=== PATIENT | female | born 1965 | race Caucasian/White ===

== ENCOUNTER 2017-05-23 15:52 | Inpatient (IN) | payer BC ==
[2017-05-23 19:38] VITALS: BMI 20.3
--- NOTE | 2017-05-23 21:06 | HP ---
CIWA Score - CIWA Score Nausea/Vomitin Muscle Tremors: 4-Moderate,w/Arms Extend Anxiety: 2 Agitation: 0-Normal Activity Paroxysmal Sweats: 3 Orientation: 0-Oriented Tacttile Disturbances: 0-None Auditory Disturbances: 0-None Visual Disturbances: 0-None Headache: 2-Mild CIWA-Ar Total Score: 14 Admission ROS S - HPI Chief Complaint: alcohol withdrawal symptoms " I am nauseas and shaky" Allergies/Adverse Reactions: Allergies Allergy/AdvReac Type Severity Reaction Status Date / Time No Known Allergies Allergy Verified 05/23/17 19:49 History of Present Illness: 51 yo female was referred by [facility] for alcohol dependence and nicotine dependence is here seeking detox. Currently 1 pack per day. PMHX: HTN, depression, insomnia. Reports prior detox, last detox December 2016, does not remember the name of the facility. Reports psychiatric admission to [facility] in March 2017 for suicidal ideation related to alcohol induced depression. Reports was in the hospital last night at [facility] reason for suicidal watch had verbalized to her daughter that she was having suicidal ideation. Plans after detox completion attend rehab at [facility]. Denies hx of seizures or alcohol related hallucinations. Reports hx of blackouts related to alcohol use, last episode yesterday. - Ebola screening Have you traveled outside of the country in the last 21 days: No Have you had contact with anyone from an Ebola affected area: No Have you been sick,other than usual withdrawal symptoms: No Do you have a fever: No - Review of Systems Constitutional: Chills, Loss of Appetite, Changes in sleep, Unintentional Wgt. Loss (10 lbs in the past 3 months) EENT: reports: Other (runny nose) Respiratory: reports: No Symptoms reported, Cough (chronic cough, x years) GI: reports: Nausea, Poor Appetite, Poor Fluid Intake : reports: No Symptoms Reported Musculoskeletal: reports: Joint Pain Integumentary: reports: No Symptoms Reported Neuro: reports: Headache Endocrine: reports: No Symptoms Reported Hematology: reports: Other (high iron) Psychiatric: reports: Orientated x3, Anxious Other Systems: Reviewed and Negative Patient History - Patient Medical History Hx Anemia: No Hx Asthma: No Hx Chronic Obstructive Pulmonary Disease (COPD): No Hx Cancer: Yes (skin cancer on face, with removal 2016) Hx Cardiac Disorders: No Hx Congestive Heart Failure: No Hx Hypertension: Yes Hx Hypercholesterolemia: No Hx Pacemaker: No HX Cerebrovascular Accident: No Hx Seizures: No Hx Dementia: No Hx Diabetes: No Hx Gastrointestinal Disorders: No Hx Liver Disease: No Hx Genitourinary Disorders: No Hx Sexually Transmitted Disorders: No Hx Renal Disease (ESRD): No Hx Thyroid Disease: No Hx Human Immunodeficiency Virus (HIV): No (does not know, declines testing ) Hx Hepatitis C: No Hx Depression: Yes Hx Suicide Attempt: No (hx of suiciudal ideation ) Hx Schizophrenia: No - Patient Surgical History Past Surgical History: No Hx Neurologic Surgery: No Hx Cataract Extraction: No Hx Cardiac Surgery: No Hx Lung Surgery: No Hx Breast Surgery: No Hx Breast Biopsy: No Hx Abdominal Surgery: Yes (multiple intestinal obstruction 2014) Hx Appendectomy: No Hx Cholecystectomy: No Hx Genitourinary Surgery: No Hx Section: Yes (1x ) Hx Orthopedic Surgery: No Other Surgical History: etopic pregency with fellopian tube removal 1990 Anesthesia Reaction: No - PPD History Previous Implant?: Yes Documented Results: Negative w/o proof PPD to be Administered?: Yes - Reproductive History Patient is a Female of Child Bearing Age (11 -55 yrs old): Yes Patient : No (Post Manopausal ) - Smoking Cessation Smoking history: Current every day smoker Have you smoked in the past 12 months: Yes Aproximately how many cigarettes per day: 20 Hx Chewing Tobacco Use: No Initiated information on smoking cessation: Yes 'Breaking Loose' booklet given: 05/23/17 - Substance & Tx. History Hx Alcohol Use: Yes Substance Use Type: Alcohol Hx Substance Use Treatment: Yes (December 2016, does not recall the name of the facility ) - Substances Abused Alcohol Route: Oral Frequency: Daily Amount used: LIQUOR- 2 PINTS, BEER- 1 SIX PACK Age of first use: 11 Date of Last Use: 05/22/17 Family Disease History - Family Disease History Family Disease History: Other: Father (decase, lung cancer, mesothelioma), Mother (alive, and well ) Admission Physical Exam S - Vital Signs Vital Signs: Vital Signs - 24 hr 05/23/17 19:35 Temperature 97.0 F L Pulse Rate 86 Respiratory 20 Rate Blood Pressure 159/103 - Physical General Appearance: Yes: Appropriately Dressed, Mild Distress, Thin, Tremorous, Sweating, Anxious HEENTM: Yes: EOMI, Hearing grossly Normal, Normal ENT Inspection, Normocephalic , Normal Voice, JESSICA, Pharynx Normal, Tm's normal Respiratory: Yes: Chest Non-Tender, Lungs Clear, Normal Breath Sounds, No Respiratory Distress, No Accessory Muscle Use Neck: Yes: Within Normal Limits Breast: Yes: Breast Exam Deferred Cardiology: Yes: Regular Rhythm, Regular Rate, Tachycardia Abdominal: Yes: Normal Bowel Sounds, Non Tender, Flat, Soft Genitourinary: Yes: Within Normal Limits Back: Yes: Normal Inspection Musculoskeletal: Yes: full range of Motion, Gait Steady, Pelvis Stable Extremities: Yes: Normal Capillary Refill, Normal Inspection, Normal Range of Motion, Non-Tender Neurological: Yes: Within Normal Limits, 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, Fully Oriented, Alert, Motor Strength 5/5, Other (tremor bilateral upper extremities) Integumentary: Yes: Normal Color, Warm, Moist Lymphatic: Yes: Within Normal Limits - Diagnostic (1) Alcohol dependence with withdrawal Current Visit: Yes Status: Acute (2) Tremor, unspecified Current Visit: Yes Status: Acute (3) Anxious mood Current Visit: Yes Status: Acute (4) Hypertension Current Visit: Yes Status: Acute Qualifiers: Hypertension type: essential hypertension Qualified Code(s): I10 - Essential (primary) hypertension (5) Elevated blood pressure reading Current Visit: Yes Status: Acute (6) Nausea Current Visit: Yes Status: Acute (7) Weight loss Current Visit: Yes Status: Acute (8) Difficulty sleeping Current Visit: Yes Status: Acute Cleared for Admission S - Detox or Rehab [facility] Level of Care: Medically Managed Detox Regimen/Protocol: Librium S Breath Alcohol Content Breath Alcohol Content: 0 Urine Pregancy Test - Result Urine Test Results: Negative- NO Line Present Urine Drug Screen - Results Drug Screen Negative: Yes
[2017-05-23] MEDS ORDERED: guaiFENesin/D-METHORPHAN HB 10 ML UNIT-DOSE CUPS PO PRN (21:16)
[2017-05-23] MEDS ORDERED: P-EPHED 60MG/TRIPROLIDI 2.5MG TABLET PO PRN (21:16)
[2017-05-23] MEDS ORDERED: chlordiazePOXIDE HCL 25 MG CAPSULE PO PRN (21:16)
[2017-05-23] MEDS ORDERED: LOPERAMIDE HCL 2 MG CAPSULE PO PRN (21:16)
[2017-05-23] MEDS ORDERED: chlordiazePOXIDE HCL 25 MG CAPSULE PO ONE (21:16)
[2017-05-23] MEDS ORDERED: NICOTINE POLACRILEX 2 MG GUM BC PRN (21:16)
[2017-05-23] MEDS ORDERED: MAGNESIUM HYDROX 2400MG/30ML ORAL SUSPENSION 30 ML CUP PO PRN (21:16)
[2017-05-23] MEDS ORDERED: MENTHOL/PHENOL 1 EACH UD MM PRN (21:16)
[2017-05-23] MEDS ORDERED: hydrOXYzine PAMOATE 50 MG CAPSULE (FP) PO PRN (21:16)
[2017-05-23] MEDS ORDERED: MAG HYDROX/AL HYDROX/SIMETH 30 ML UNIT-DOSE CUP PO PRN (21:16)
[2017-05-23] MEDS ORDERED: ACETAMINOPHEN 325 MG TABLET (FP) PO PRN (21:16)
[2017-05-23] MEDS ORDERED: MAGNESIUM CITRATE 300 ML BOTTLE PO PRN (21:16)
[2017-05-23] MEDS ORDERED: IBUPROFEN 400 MG TABLET (FP) PO PRN (21:16)
[2017-05-23] MEDS ORDERED: amLODIPine BESYLATE 10 MG TABLET (FP) PO SCH (21:30)
[2017-05-23] MEDS: THIAMINE HCL 100 MG TABLET (FP) PO SCH (22:54)
[2017-05-23] MEDS: chlordiazePOXIDE HCL 25 MG CAPSULE PO SCH (22:55)
[2017-05-23] MEDS: cloNIDine HCL 0.1 MG TABLET PO PRN (22:55)
[2017-05-23] MEDS: MELATONIN 5 MG TABLETS PO SCH (22:55)
[2017-05-24 01:38] LABS: URINE APPEARANCE SLCLOUDY; URINE BILIRUBIN NEGATIVE (NEGATIVE); URINE BLOOD NEGATIVE (NEGATIVE); URINE COLOR AMBER; URINE GLUCOSE (UA) NEGATIVE (NEGATIVE); URINE KETONE 1+ (NEGATIVE); URINE LEUK ESTERASE NEGATIVE (NEGATIVE); URINE NITRITE NEGATIVE (NEGATIVE); URINE UROBILINOGEN 4.0 E.U/dl mg/dL (0.2-1.0)
[2017-05-24 02:00] LABS: URINE PROTEIN 2+ (NEGATIVE)
[2017-05-24 02:02] LABS: EPI CELLS RARE /HPF (FEW); URINE MUCUS FEW
[2017-05-24] MEDS: chlordiazePOXIDE HCL 25 MG CAPSULE PO SCH ×4 (05:12→22:43)
--- NOTE | 2017-05-24 09:31 | CONSULT ---
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 Substance Abuse History: Smoking history: Current every day smoker. Have you smoked in the past 12 months: Yes. Aproximately how many cigarettes per day: 20. Hx Chewing Tobacco Use: No. Initiated information on smoking cessation: Yes. 'Breaking Loose' booklet given: 05/23/17. - Substance & Tx. History. Hx Alcohol Use: Yes. Substance Use Type: Alcohol. Hx Substance Use Treatment: Yes (December 2016, does not recall the name of the facility ). - Substances Abused. Alcohol. Route: Oral. Frequency: Daily. Amount used: LIQUOR- 2 PINTS, BEER- 1 SIX PACK. Age of first use: 11. Date of Last Use: 05/22/17 Medical History: PMHX: HTN, Weight loss history Psychiatric History: Patient reports history of depression and anxiety, recent psychiatric admission to [facility] on March 2017 due to suicidal ideation related to alcohol induced depression. Patient reports suicidal ideation history, no attempts, no plans. Patient motivated to be transfered for rehabilitation therapy after detoxification protocol. Reports no medications taking prior to admission, as per chart taking Zoloft 25mg poqd Physical/Sexual Abuse/Trauma History: Denies Additional Comment: Zoloft 25mg poqd Mental Status Exam - Mental Status Exam Alert and Oriented to: Person Cognitive Function: Fair Patient Appearance: Unkempt Mood: Anxious Affect: Flat Patient Behavior: Cooperative Speech Pattern: Delayed Voice Loudness: Mildly Soft/Quiet Thought Process: Circumstantial Thought Disorder: Being Controlled Hallucinations: Denies Suicidal Ideation: Denies Homicidal Ideation: Denies Insight/Judgement: Fair Sleep: Difficulty falling asleep Appetite: Weight loss Muscle strength/Tone: Mild Hypotonicity Gait/Station: Normal Additional Comments: Zoloft 25mg poqd Psychiatric Findings - Problem List (Brooks 1, 2,3) (1) Nicotine dependence Current Visit: Yes Status: Acute (2) Drug-induced mood disorder Current Visit: Yes Status: Acute (3) MDD (major depressive disorder) Current Visit: Yes Status: Suspected (4) Alcohol dependence with withdrawal Current Visit: Yes Status: Acute - Initial Treatment Plan Initial Treatment Plan: Zoloft 25mg poqd. Remeron 15mg po qhs
--- NOTE | 2017-05-24 09:40 | PN ---
[facility] CIWA - CIWA Score Nausea/Vomitin-Mild Nausea/No Vomiting Muscle Tremors: 4-Moderate,w/Arms Extend Anxiety: 3 Agitation: 3 Paroxysmal Sweats: 1-Minimal Palms Moist Orientation: 0-Oriented Tacttile Disturbances: 1-Very Mild Itch/Numbness Auditory Disturbances: 0-None Visual Disturbances: 0-None Headache: 0-None Present CIWA-Ar Total Score: 13 [facility] Progress Note (SOAP) Subjective: sweat tremor anxiety restlessness itch gi distress Objective: 05/24/17 09:39 Vital Signs Temperature 98.4 F 05/24/17 06:00 Pulse Rate 65 05/24/17 06:00 Respiratory Rate 16 05/24/17 06:00 Blood Pressure 121/78 05/24/17 06:00 O2 Sat by Pulse Oximetry (%) Laboratory Last Values Urine Color Shira 05/23/17 22:45 Urine Appearance Slcloudy 05/23/17 22:45 Urine pH 6.0 (5.0-8.0) 05/23/17 22:45 Ur Specific [place] 1.023 (1.001-1.035) 05/23/17 22:45 Urine Protein 2+ (NEGATIVE) H 05/23/17 22:45 Urine Glucose (UA) Negative (NEGATIVE) 05/23/17 22:45 Urine Ketones 1+ (NEGATIVE) H 05/23/17 22:45 Urine Blood Negative (NEGATIVE) 05/23/17 22:45 Urine Nitrite Negative (NEGATIVE) 05/23/17 22:45 Urine Bilirubin Negative (NEGATIVE) 05/23/17 22:45 Urine Urobilinogen 4.0 e.u/dl mg/dL (0.2-1.0) H 05/23/17 22:45 Ur Leukocyte Esterase Negative (NEGATIVE) 05/23/17 22:45 Urine WBC (Auto) 4 /hpf (3-5) 05/23/17 22:45 Urine RBC (Auto) 10 /hpf (0-3) 05/23/17 22:45 Ur Epithelial Cells Rare /HPF (FEW) 05/23/17 22:45 Urine Mucus Few 05/23/17 22:45 lab noted Assessment: 05/24/17 09:39 withdrawal sx Plan: continue detox
[2017-05-24 10:14] LABS: HEMATOCRIT 42.1 % (32.4-45.2); HEMOGLOBIN 14.4 GM/dL (10.7-15.3); MCH 34.9 pg (25.7-33.7); MCHC 34.3 g/dl (32.0-36.0); MEAN CELL VOLUME 101.8 fl (80-96); MEAN PLT VOLUME 8.9 fl (7.5-11.1); PLATELET COUNT 72 K/MM3 (134-434); RBC 4.14 M/mm3 (3.60-5.2); RDW 15.3 % (11.6-15.6); WHITE BLOOD COUNT 4.2 K/mm3 (4.0-10.0)
[2017-05-24] MEDS: PRENATAL VITAMINS W/ FOLIC ACID TABLET (FP) PO SCH (10:28)
[2017-05-24] MEDS: amLODIPine BESYLATE 10 MG TABLET (FP) PO SCH (10:28)
[2017-05-24] MEDS: SERTRALINE HCL 25 MG TABLET (FP) PO SCH (10:28)
[2017-05-24] MEDS: NICOTINE 21 MG/24 HOURS TOPICAL PATCH TD SCH (10:31)
[2017-05-24 10:42] LABS: CHLORIDE 99 mmol/L (98-107); POTASSIUM 3.5 mmol/L (3.5-5.1); SODIUM 140 mmol/L (136-145)
[2017-05-24 10:53] LABS: ALBUMIN 3.8 g/dl (3.4-5.0); ALK PHOS 56 U/L (45-117); ANION GAP 11 (8-16); BILIRUBIN,TOTAL 1.3 mg/dL (0.2-1.0); BLOOD UREA NITROGEN 8 mg/dL (7-18); CALCIUM 9.6 mg/dL (8.5-10.1); CO2 30 mmol/L (21-32); CREATININE 0.5 mg/dL (0.55-1.02); GLUCOSE,RANDOM 105 mg/dL (74-106); SGOT/AST 83 U/L (15-37); SGPT/ALT 75 U/L (12-78); TOT PROT 6.5 g/dl (6.4-8.2)
--- NOTE | 2017-05-24 11:52 | EKG ---
Test Reason : Blood Pressure : / mmHG Vent. Rate : 067 BPM Atrial Rate : 067 BPM P-R Int : 130 ms QRS Dur : 080 ms QT Int : 426 ms P-R-T Axes : 066 059 022 degrees QTc Int : 450 ms NORMAL SINUS RHYTHM NONSPECIFIC T WAVE ABNORMALITY ABNORMAL ECG NO PREVIOUS ECGS AVAILABLE Confirmed by CORIE ADAMSON, FAUSTINO ([id number]) on 05/24/2017 11:51:50 AM Referred By: Confirmed By:FAUSTINO FONTENOT MD
[2017-05-24] MEDS: MELATONIN 5 MG TABLETS PO SCH (22:43)
[2017-05-24] MEDS: THIAMINE HCL 100 MG TABLET (FP) PO SCH (22:43)
[2017-05-24] MEDS: MIRTAZAPINE 15 MG TABLET (FP) PO SCH (22:43)
[2017-05-24] MEDS: cloNIDine HCL 0.1 MG TABLET PO PRN (22:43)
[2017-05-25] MEDS: chlordiazePOXIDE HCL 25 MG CAPSULE PO SCH ×3 (05:47→17:37)
--- NOTE | 2017-05-25 11:03 | PN ---
S CIWA - CIWA Score Nausea/Vomitin-Mild Nausea/No Vomiting Muscle Tremors: 4-Moderate,w/Arms Extend Anxiety: 3 Agitation: 3 Paroxysmal Sweats: 1-Minimal Palms Moist Orientation: 0-Oriented Tacttile Disturbances: 0-None Auditory Disturbances: 0-None Visual Disturbances: 0-None Headache: 0-None Present CIWA-Ar Total Score: 12 [facility] Progress Note (SOAP) Subjective: sweat tremor anxiety restlessness trouble sleep at night mild gi distress Objective: 05/25/17 11:05 Vital Signs Temperature 95.5 F L 05/25/17 10:00 Pulse Rate 96 H 05/25/17 10:00 Respiratory Rate 18 05/25/17 10:00 Blood Pressure 92/71 05/25/17 10:00 O2 Sat by Pulse Oximetry (%) Laboratory Last Values WBC 4.2 K/mm3 (4.0-10.0) 05/24/17 07:00 RBC 4.14 M/mm3 (3.60-5.2) 05/24/17 07:00 Hgb 14.4 GM/dL (10.7-15.3) 05/24/17 07:00 Hct 42.1 % (32.4-45.2) 05/24/17 07:00 MCV 101.8 fl (80-96) H 05/24/17 07:00 MCH 34.9 pg (25.7-33.7) H 05/24/17 07:00 MCHC 34.3 g/dl (32.0-36.0) 05/24/17 07:00 RDW 15.3 % (11.6-15.6) 05/24/17 07:00 Plt Count 72 K/MM3 (134-434) L 05/24/17 07:00 MPV 8.9 fl (7.5-11.1) 05/24/17 07:00 Sodium 140 mmol/L (136-145) 05/24/17 07:00 Potassium 3.5 mmol/L (3.5-5.1) 05/24/17 07:00 Chloride 99 mmol/L (98-107) 05/24/17 07:00 Carbon Dioxide 30 mmol/L (21-32) 05/24/17 07:00 Anion Gap 11 (8-16) 05/24/17 07:00 BUN 8 mg/dL (7-18) 05/24/17 07:00 Creatinine 0.5 mg/dL (0.55-1.02) L 05/24/17 07:00 Creat Clearance w eGFR > 60 (>60) 05/24/17 07:00 Random Glucose 105 mg/dL (74-106) 05/24/17 07:00 Calcium 9.6 mg/dL (8.5-10.1) 05/24/17 07:00 Total Bilirubin 1.3 mg/dL (0.2-1.0) H 05/24/17 07:00 AST 83 U/L (15-37) H 05/24/17 07:00 ALT 75 U/L (12-78) 05/24/17 07:00 Alkaline Phosphatase 56 U/L (45-117) 05/24/17 07:00 Total Protein 6.5 g/dl (6.4-8.2) 05/24/17 07:00 Albumin 3.8 g/dl (3.4-5.0) 05/24/17 07:00 Urine Color Shira 05/23/17 22:45 Urine Appearance Slcloudy 05/23/17 22:45 Urine pH 6.0 (5.0-8.0) 05/23/17 22:45 Ur Specific [place] 1.023 (1.001-1.035) 05/23/17 22:45 Urine Protein 2+ (NEGATIVE) H 05/23/17 22:45 Urine Glucose (UA) Negative (NEGATIVE) 05/23/17 22:45 Urine Ketones 1+ (NEGATIVE) H 05/23/17 22:45 Urine Blood Negative (NEGATIVE) 05/23/17 22:45 Urine Nitrite Negative (NEGATIVE) 05/23/17 22:45 Urine Bilirubin Negative (NEGATIVE) 05/23/17 22:45 Urine Urobilinogen 4.0 e.u/dl mg/dL (0.2-1.0) H 05/23/17 22:45 Ur Leukocyte Esterase Negative (NEGATIVE) 05/23/17 22:45 Urine WBC (Auto) 4 /hpf (3-5) 05/23/17 22:45 Urine RBC (Auto) 10 /hpf (0-3) 05/23/17 22:45 Ur Epithelial Cells Rare /HPF (FEW) 05/23/17 22:45 Urine Mucus Few 05/23/17 22:45 RPR Titer Nonreactive (NONREACTIVE) 05/24/17 07:00 lab noted Assessment: 05/25/17 11:06 withdrawal sx Plan: continue detox
[2017-05-25] MEDS: PRENATAL VITAMINS W/ FOLIC ACID TABLET (FP) PO SCH (11:22)
[2017-05-25] MEDS: amLODIPine BESYLATE 10 MG TABLET (FP) PO SCH (11:24)
[2017-05-25] MEDS: NICOTINE 21 MG/24 HOURS TOPICAL PATCH TD SCH (11:24)
[2017-05-25] MEDS: SERTRALINE HCL 25 MG TABLET (FP) PO SCH (11:24)
[2017-05-25] MEDS: chlordiazePOXIDE 5 MG CAPSULE PO SCH (22:18)
[2017-05-25] MEDS: MELATONIN 5 MG TABLETS PO SCH (22:18)
[2017-05-25] MEDS: THIAMINE HCL 100 MG TABLET (FP) PO SCH (22:18)
[2017-05-25] MEDS: MIRTAZAPINE 15 MG TABLET (FP) PO SCH (22:18)
[2017-05-26] MEDS: chlordiazePOXIDE 5 MG CAPSULE PO SCH ×4 (05:09→17:34)
--- NOTE | 2017-05-26 10:23 | PN ---
[facility] Progress Note (SOAP) Subjective: ALERT,INTERRUPTED SLEEP Objective: 05/26/17 10:22 Vital Signs Temperature 97 F L 05/26/17 09:24 Pulse Rate 87 05/26/17 09:24 Respiratory Rate 18 05/26/17 09:24 Blood Pressure 119/68 05/26/17 09:24 O2 Sat by Pulse Oximetry (%) Assessment: 05/26/17 10:22 WITHDRAWAL SYMPTOM Plan: CONTINUE DETOX,DISCHARGE IN AM
[2017-05-26] MEDS: amLODIPine BESYLATE 10 MG TABLET (FP) PO SCH (10:25)
[2017-05-26] MEDS: PRENATAL VITAMINS W/ FOLIC ACID TABLET (FP) PO SCH (10:25)
[2017-05-26] MEDS: SERTRALINE HCL 25 MG TABLET (FP) PO SCH (10:25)
[2017-05-26] MEDS: NICOTINE 21 MG/24 HOURS TOPICAL PATCH TD SCH (10:25)
[2017-05-26] MEDS: THIAMINE HCL 100 MG TABLET (FP) PO SCH (22:10)
[2017-05-26] MEDS: cloNIDine HCL 0.1 MG TABLET PO PRN (22:10)
[2017-05-26] MEDS: MIRTAZAPINE 15 MG TABLET (FP) PO SCH (22:10)
[2017-05-26] MEDS: MELATONIN 5 MG TABLETS PO SCH (22:10)
[2017-05-26] MEDS: chlordiazePOXIDE HCL 10 MG CAPSULE PO SCH (22:10)
[2017-05-27] MEDS: chlordiazePOXIDE HCL 10 MG CAPSULE PO SCH (05:15)
[2017-05-27 09:32] VITALS: BP 101/68; PULSE 71; TEMP 98.2
--- NOTE | 2017-05-27 11:27 | PN ---
S Progress Note (SOAP) Subjective: No complaints Objective: 05/27/17 11:26 A & Ox 3 no acute distress Vital Signs Temperature 98.2 F 05/27/17 09:31 Pulse Rate 71 05/27/17 09:31 Respiratory Rate 16 05/27/17 09:31 Blood Pressure 101/68 05/27/17 09:31 O2 Sat by Pulse Oximetry (%) Assessment: 05/27/17 11:26 detox successfully completed Plan: For discharge
--- NOTE | 2017-05-27 11:34 | DS ---
[facility] Detox Discharge Summary Admission Date: 05/23/17 Discharge Date: 05/27/17 - History Additional Comments: Pt A & O x 3, in no acute distress, in good spirit, Being discharged home, will do O/P programs and will attend AA meetings Pt denies suicidal ideations. Prescription bp meds already sent to pharmacy Vital Signs Temperature 98.2 F 05/27/17 09:31 Pulse Rate 71 05/27/17 09:31 Respiratory Rate 16 05/27/17 09:31 Blood Pressure 101/68 05/27/17 09:31 O2 Sat by Pulse Oximetry (%) Pertinent Past History: HTN - Physical Exam Results Vital Signs: Vital Signs Temperature 98.2 F 05/27/17 09:31 Pulse Rate 71 05/27/17 09:31 Respiratory Rate 16 05/27/17 09:31 Blood Pressure 101/68 05/27/17 09:31 O2 Sat by Pulse Oximetry (%) Pertinent Admission Physical Exam Findings: withdrawal sx - Treatment Hospital Course: Detox Protocol Followed, Detoxed Safely, Responded well, Discharged Condition Good Patient has Accepted a Rehab Referral to: Out patient day rehab programs - Medication Discharge Medications: Ambulatory Orders Mirtazapine [Remeron -] 15 mg PO HS #30 tablet 05/24/17 Sertraline HCl [Zoloft -] 25 mg PO DAILY #30 tablet 05/24/17 Amlodipine Besylate [Norvasc -] 10 mg PO DAILY #30 tablet 05/26/17 - Diagnosis (1) Alcohol dependence with withdrawal Current Visit: Yes Status: Acute (2) Nicotine dependence Current Visit: Yes Status: Chronic (3) Anxious mood Current Visit: Yes Status: Chronic (4) Drug-induced mood disorder Current Visit: Yes Status: Chronic (5) Elevated blood pressure reading Current Visit: Yes Status: Acute (6) Hypertension Current Visit: Yes Status: Acute Qualifiers: Hypertension type: essential hypertension Qualified Code(s): I10 - Essential (primary) hypertension (7) Weight loss Current Visit: Yes Status: Chronic (8) MDD (major depressive disorder) Current Visit: Yes Status: Suspected - AMA Did Patient Leave Against Medical Advice: No
== END 2017-05-27 09:34 | disposition home or self-care (01) | DRG 897 ==
LOC: YASAS 15:52 → Y6N 20:32
PROVIDERS: ADMIT Internal Medicine; ATTEND Internal Medicine
PROC: HZ2ZZZZ Detoxification Services for Substance Abuse Treatment (ICD-10-PCS; principal; 2017-05-23)
DX: F10.230 Alcohol dependence with withdrawal, uncomplicated (principal); F33.9 Major depressive disorder, recurrent, unspecified; F17.210 Nicotine dependence, cigarettes, uncomplicated; F41.9 Anxiety disorder, unspecified; F19.24 Other psychoactive substance dependence with psychoactive substance-induced mood disorder; G47.00 Insomnia, unspecified; I10 Essential (primary) hypertension; R63.4 Abnormal weight loss; Z68.20 Body mass index [BMI] 20.0-20.9, adult
CPT/HCPCS: 36415; 80053; 81003; 81015; 85027; 86593; 93005; 93010; J0735